=== PATIENT | male | born 1945 | race Two or more races ===

== ENCOUNTER 2020-05-07 14:20 | Emergency (ER) | payer MEDICARE, MEDICAID ==
[~2020-05-07] VITALS: Ht 167.6 cm; Wt 79.4 kg
--- NOTE | 2020-05-07 14:40 | NUR ---
BIB . FELT SHORT OF BREATH TODAY, TESTED (+) TO COVID 10 04/28/2020. VS CHECKED, SEEN BY .
[2020-05-07] MEDS: ACETAMINOPHEN ES 500 MG TABLET PO ONE (15:00)
[2020-05-07 15:26] LABS: BASOPHILS % (AUTO) 0.6 % (0.0-2.0); EOSINOPHILS % (AUTO) 0.1 % (0.0-6.0); HEMATOCRIT 43 % (39-51); LYMPHOCYTES # (AUTO) 1.2 /CMM (0.8-4.8); LYMPHOCYTES % (AUTO) 24.6 % (20.0-44.0); MEAN CORPUSCULAR HGB CONC 33 g/dl (31.0-36.0); MEAN CORPUSCULAR VOLUME 92 fL (80-96); MONOCYTES # (AUTO) 0.7 /CMM (0.1-1.30); MONOCYTES % (AUTO) 14.7 % (2.0-12.0); PLATELET COUNT (AUTO) 98 /CMM (150-450); RED BLOOD CELL COUNT(AUTO) 4.67 MIL/uL (4.5-6.0); WHITE BLOOD COUNT (AUTO) 4.9 K/uL (4.3-11.0)
[2020-05-07] MEDS ORDERED: AZIT250T13 PO (15:26)
[2020-05-07] MEDS ORDERED: ERGO500040 PO (15:31)
[2020-05-07] MEDS ORDERED: ACETAMINOPHEN ES 500 MG TABLET ONE (15:31)
[2020-05-07] MEDS ORDERED: OLME1TAB92 PO (15:31)
[2020-05-07] MEDS ORDERED: OMEP40CA13 PO (15:31)
[2020-05-07] MEDS ORDERED: ROSU10TA2 PO (15:31)
[2020-05-07] MEDS ORDERED: ASPI-1169 PO (15:31)
[2020-05-07] MEDS ORDERED: METF-442 PO (15:31)
[2020-05-07 16:06] LABS: D-DIMER 1.2 mg/L(FEU (0.17-0.50)
[2020-05-07 16:18] LABS: ALANINE AMINOTRANSFERASE 45 U/L (12-78); ALBUMIN 2.4 g/dL (3.4-5.0); ALKALINE PHOSPHATASE 57 U/L (46-116); ASPARTATE AMINOTRANSFERASE 43 U/L (15-37); B-TYPE NATRIURETIC PEPTIDE 1059 PG/ML (0-125); BILIRUBIN,TOTAL 0.4 mg/dL (0.2-1.0); CALCIUM, SERUM 8.3 mg/dL (8.5-10.1); CARBON DIOXIDE 24 mmol/L (21-32); CHLORIDE 103 mmol/L (98-107); CREATININE 1.4 mg/dL (0.6-1.3); GLUCOSE 110 mg/dL (74-106); POTASSIUM 3.8 mmol/L (3.5-5.1); SODIUM SERUM 138 mmol/L (136-145); TOTAL PROTEIN, SERUM 6.3 g/dL (6.4-8.2); UREA NITROGEN, BLOOD 28 mg/dL (7-18)
[2020-05-07 16:58] LABS: C-REACTIVE PROTEIN 8.1 mg/dL (0.0-0.9); CREATINE KINASE, TOTAL 32 U/L (39-308); FERRITIN 857 ng/mL (8-388)
--- NOTE | 2020-05-07 17:18 | NUR ---
urine collected sent to lab
[2020-05-07 17:23] LABS: BAND % (MANUAL) 1 % (0.0-5.0); LYMPHOCYTES % (MANUAL) 21 % (16-48); MONOCYTES % (MANUAL) 17 % (0-11.0); NEUTROPHILS % (MANUAL) 61 (42-76)
--- NOTE | 2020-05-07 17:36 | NUR ---
Patient discharged to home in stable condition. Written and verbal after care instructions given. Patient verbalizes understanding of instruction.IV removed. Catheter intact and site benign. Pressure and 4x4 applied to site. No bleeding noted. Pt ambulatory with a steady gait
[2020-05-07 17:38] VITALS: BP 106/66
[2020-05-07 17:46] LABS: BILIRUBIN,URINE SMALL (NEGATIVE); COLOR,URINE YELLOW (YELLOW); LEUKOCYTE ESTERASE ,URINE Negative (NEGATIVE); NITRITE, URINE Negative (NEGATIVE); PH,URINE 5.5 (5.0-8.0); PROTEIN,URINE 30 mg/dl (NEGATIVE); UGLUCOSE Negative (NEGATIVE); UROBILINOGEN,URINE 0.2 EU/dL (0.2)
[2020-05-07 17:49] LABS: BACTERIA,URINE Rare /HPF (None Seen); RBC,URINE NONE SEEN /HPF (0-2); SQUAMOUS EPITHELIAL CELL,UR Few /HPF (None Seen); WBC,URINE NONE SEEN /HPF (0-3)
== END 2020-05-07 17:38 | disposition home or self-care (01) ==
LOC: ER 14:25
DX: U07.1 COVID-19 (principal); I10 Essential (primary) hypertension; E11.9 Type 2 diabetes mellitus without complications; Z79.82 Long term (current) use of aspirin; Z79.84 Long term (current) use of oral hypoglycemic drugs; Z79.899 Other long term (current) drug therapy
CPT/HCPCS: 36415; 71045-TC; 80053-TC; 81001; 82550-TC; 82728-TC; 83605-TC; 83615-TC; 83880; 84484-TC; 85025-TC; 85378-TC; 85730-TC; 86140-TC; 87040-TC

== ENCOUNTER 2020-05-11 12:50 | Inpatient (IN) | payer MEDICARE, OTHER ==
[~2020-05-11] VITALS: Ht 167.6 cm; Wt 74.8 kg
[~2020-05-11 12:50] MED LIST: ASPI-1169 PO; AZIT250T13 PO; ERGO500040 PO; METF-442 PO; OLME1TAB92 PO; OMEP40CA13 PO; ROSU10TA2 PO
[2020-05-11] MEDS ORDERED: ACETAMINOPHEN ES 500 MG TABLET ONE (13:07)
[2020-05-11] MEDS ORDERED: DEXAMETHASONE SOD PHOSPHATE 10 MG/ML VIAL ONE (13:07)
[2020-05-11] MEDS ORDERED: DEXAMETHASONE SOD PHOSPHATE 10 MG/ML VIAL IV ONE (13:30)
[2020-05-11] MEDS ORDERED: ACETAMINOPHEN ES 500 MG TABLET PO ONE (13:30)
--- NOTE | 2020-05-11 13:30 | NUR ---
Patient came in to the er c/o cough and fever x 12 days. Connected to the monitor and pulse ox. kept comfortable, will continue to monitor accordingly. IV access initiated and blood drawned and sent to lab.
[2020-05-11] MEDS ORDERED: BENZ200C53 PO (13:45)
[2020-05-11 13:53] LABS: ALANINE AMINOTRANSFERASE 25 U/L (12-78); ALBUMIN 2.2 g/dL (3.4-5.0); ALKALINE PHOSPHATASE 57 U/L (46-116); ASPARTATE AMINOTRANSFERASE 23 U/L (15-37); BILIRUBIN,DIRECT 0.1 mg/dL (0.0-0.2); BILIRUBIN,TOTAL 0.5 mg/dL (0.2-1.0); CALCIUM, SERUM 8.7 mg/dL (8.5-10.1); CARBON DIOXIDE 24 mmol/L (21-32); CHLORIDE 104 mmol/L (98-107); CREATININE 1.1 mg/dL (0.6-1.3); GLUCOSE 129 mg/dL (74-106); POTASSIUM 4.1 mmol/L (3.5-5.1); SODIUM SERUM 137 mmol/L (136-145); TOTAL PROTEIN, SERUM 6.8 g/dL (6.4-8.2); UREA NITROGEN, BLOOD 18 mg/dL (7-18)
--- NOTE | 2020-05-11 14:00 | NUR ---
CALLED EPIC TO [employer] CLERK
[2020-05-11 14:05] LABS: BASOPHILS % (AUTO) 0.6 % (0.0-2.0); EOSINOPHILS % (AUTO) 0.9 % (0.0-6.0); HEMATOCRIT 41 % (39-51); HEMOGLOBIN 13.5 g/dL (13.5-17.5); LYMPHOCYTES # (AUTO) 0.9 /CMM (0.8-4.8); LYMPHOCYTES % (AUTO) 17.3 % (20.0-44.0); MEAN CORPUSCULAR HGB CONC 33 g/dl (31.0-36.0); MEAN CORPUSCULAR VOLUME 90 fL (80-96); MONOCYTES # (AUTO) 0.6 /CMM (0.1-1.30); NEUTROPHILS # (AUTO) 3.7 /CMM (1.8-8.9); NEUTROPHILS % (AUTO) 69.2 % (43.0-81.0); PLATELET COUNT (AUTO) 178 /CMM (150-450); RED BLOOD CELL COUNT(AUTO) 4.52 MIL/uL (4.5-6.0); WHITE BLOOD COUNT (AUTO) 5.3 K/uL (4.3-11.0)
[2020-05-11] MEDS ORDERED: ONDANSETRON HCL/PF 4 MG/2 ML VIAL IVP PRN (15:30)
[2020-05-11] MEDS ORDERED: DEXTROSE 50%-WATER 50 ML DISP.SYRIN IV PRN (15:30)
[2020-05-11] MEDS ORDERED: ALBUTEROL SULFATE 8 GM HFA.AER.AD IH PRN (15:30)
[2020-05-11] MEDS ORDERED: ACETAMINOPHEN 325 MG TABLET PO PRN (15:30)
[2020-05-11] MEDS ORDERED: BENZONATATE 100 MG CAPSULE PO PRN (16:00)
[2020-05-11] MEDS ORDERED: CEFTRIAXONE 1GM BAG (ER ONLY) 50 ML IV ONE (16:06)
[2020-05-11] MEDS: CEFTRIAXONE 1 G in IV D5W 50 ML IV SCH (16:20)
[2020-05-11 16:59] LABS: C-REACTIVE PROTEIN 24.3 mg/dL (0.0-0.9)
[2020-05-11] MEDS: BLOOD SUGAR DIAGNOSTIC 1 EACH STRIP IN SCH ×2 (17:26→22:00)
--- NOTE | 2020-05-11 17:26 | NUR ---
blood sugar checked 127 no insulin needed.
--- NOTE | 2020-05-11 19:18 | NUR ---
report given to Vy MUNOZ for lilliana
--- NOTE | 2020-05-11 19:18 | NUR ---
covid swab collected and sent to lab
--- NOTE | 2020-05-11 19:19 | NUR ---
rec'd report from ALEXANDER Martin for lilliana
--- NOTE | 2020-05-11 19:33 | NUR ---
urine sent to lab
[2020-05-11 19:42] LABS: BILIRUBIN,URINE Negative (NEGATIVE); COLOR,URINE YELLOW (YELLOW); LEUKOCYTE ESTERASE ,URINE Negative (NEGATIVE); NITRITE, URINE Negative (NEGATIVE); PROTEIN,URINE 30 mg/dl (NEGATIVE); UGLUCOSE Negative (NEGATIVE); UROBILINOGEN,URINE 0.2 EU/dL (0.2)
[2020-05-11 19:46] LABS: WBC,URINE 0-2 /HPF (0-3)
[2020-05-11 19:47] LABS: BACTERIA,URINE Rare /HPF (None Seen); MUCUS,URINE Rare /LPF (None Seen); SQUAMOUS EPITHELIAL CELL,UR Rare /HPF (None Seen)
--- NOTE | 2020-05-11 20:55 | NUR ---
call from lab rapid covid negative.
[2020-05-11] MEDS: INSULIN REGULAR, HUMAN 100 UNIT/ML 3 ML VIAL SQ PRN (22:30)
[2020-05-12 04:36] LABS: BASOPHILS % (AUTO) 0.3 % (0.0-2.0); HEMATOCRIT 44 % (39-51); HEMOGLOBIN 14.6 g/dL (13.5-17.5); LYMPHOCYTES % (AUTO) 28.7 % (20.0-44.0); MEAN CORPUSCULAR HGB CONC 33 g/dl (31.0-36.0); MEAN CORPUSCULAR VOLUME 90 fL (80-96); MONOCYTES # (AUTO) 0.2 /CMM (0.1-1.30); MONOCYTES % (AUTO) 6.1 % (2.0-12.0); NEUTROPHILS # (AUTO) 2.3 /CMM (1.8-8.9); NEUTROPHILS % (AUTO) 64.9 % (43.0-81.0); PLATELET COUNT (AUTO) 191 /CMM (150-450); RED BLOOD CELL COUNT(AUTO) 4.87 MIL/uL (4.5-6.0); WHITE BLOOD COUNT (AUTO) 3.5 K/uL (4.3-11.0)
[2020-05-12] MEDS ORDERED: AMLODIPINE BESYLATE 5 MG TABLET ONE ×2 (04:43→09:23)
[2020-05-12] MEDS ORDERED: hydrALAZINE HCL 25 MG TABLET ONE (04:51)
[2020-05-12 05:00] LABS: ALANINE AMINOTRANSFERASE 25 U/L (12-78); ALKALINE PHOSPHATASE 55 U/L (46-116); ASPARTATE AMINOTRANSFERASE 19 U/L (15-37); BILIRUBIN,TOTAL 0.4 mg/dL (0.2-1.0); CARBON DIOXIDE 27 mmol/L (21-32); CHLORIDE 105 mmol/L (98-107); CHOLESTEROL 134 mg/dL (<200); GLUCOSE 183 mg/dL (74-106); HDL CHOLESTEROL 35 mg/dL (40-60); LDL 76 mg/dL (0-99); MAGNESIUM 2.3 mg/dL (1.8-2.4); PHOSPHORUS 3.2 mg/dL (2.5-4.9); POTASSIUM 4.5 mmol/L (3.5-5.1); SODIUM SERUM 139 mmol/L (136-145); THYROID STIMULATING HORMONE < 0.007 uIU/mL (0.358-3.74); TOTAL PROTEIN, SERUM 6.9 g/dL (6.4-8.2); TRIGLYCERIDES 85 mg/dL (30-150); UREA NITROGEN, BLOOD 21 mg/dL (7-18)
[2020-05-12] MEDS ORDERED: hydrALAZINE HCL 25 MG TABLET PO PRN (05:00)
[2020-05-12] MEDS ORDERED: AMLODIPINE BESYLATE 5 MG TABLET PO SCH (05:00)
--- NOTE | 2020-05-12 05:06 | NUR ---
non admin Apresoline was pulled from the floor omnicell. Medication unavailable in ED
--- NOTE | 2020-05-12 07:04 | NUR ---
gave report to ALEXANDER Martin for lilliana
[2020-05-12] MEDS: BLOOD SUGAR DIAGNOSTIC 1 EACH STRIP IN SCH ×4 (08:26→21:57)
[2020-05-12] MEDS: INSULIN REGULAR, HUMAN 100 UNIT/ML 3 ML VIAL SQ PRN ×4 (08:28→22:05)
[2020-05-12] MEDS ORDERED: DEXAMETHASONE SOD PHOSPHATE 10 MG/ML VIAL ONE (09:22)
[2020-05-12] MEDS ORDERED: ENOXAPARIN SODIUM 40 MG/0.4 ML DISP.SYRIN SQ ONE (09:22)
[2020-05-12] MEDS ORDERED: METFORMIN XR 500 MG TAB.SR.24H PO ONE (09:23)
[2020-05-12] MEDS ORDERED: PANTOPRAZOLE 40 MG TABLET.DR PO ONE (09:23)
[2020-05-12] MEDS ORDERED: ATORVASTATIN 40 MG TABLET ONE (09:23)
[2020-05-12] MEDS ORDERED: ASPIRIN 81 MG TAB.CHEW ONE (09:23)
[2020-05-12] MEDS: DEXAMETHASONE SOD PHOSPHATE 10 MG/ML VIAL IV SCH (09:35)
[2020-05-12] MEDS: ASPIRIN 81 MG TAB.CHEW PO SCH (09:36)
[2020-05-12] MEDS: LOSARTAN/HCTZ 50-12.5MG/ 1 EA TABLET PO SCH (09:36)
[2020-05-12] MEDS: AMLODIPINE BESYLATE 10 MG TABLET PO SCH (09:36)
[2020-05-12] MEDS: METFORMIN 500 MG TABLET PO SCH (09:36)
[2020-05-12] MEDS: ATORVASTATIN 40 MG TABLET PO SCH (09:36)
[2020-05-12] MEDS: PANTOPRAZOLE 40 MG TABLET.DR PO SCH (09:36)
[2020-05-12] MEDS: ENOXAPARIN SODIUM 40 MG/0.4 ML DISP.SYRIN SQ SCH (09:37)
--- NOTE | 2020-05-12 14:17 | NUR ---
+ PCR PER LAB.
[2020-05-12] MEDS ORDERED: AZITHROMYCIN 250 MG TABLET PO SCH (16:00)
[2020-05-12] MEDS: CEFTRIAXONE 1 G in IV D5W 50 ML IV SCH (16:23)
[2020-05-12] MEDS ORDERED: AZITHROMYCIN 250 MG TABLET ONE (17:05)
--- NOTE | 2020-05-12 19:16 | NUR ---
rec'd report from axvier mcrae for lilliana
--- NOTE | 2020-05-12 22:00 | NUR ---
pt fed and made comfortable.
--- NOTE | 2020-05-13 01:30 | NUR ---
pt resting comfortably. Easily arousable
[2020-05-13 05:16] LABS: CALCIUM, SERUM 9.2 mg/dL (8.5-10.1); CREATININE 1.2 mg/dL (0.6-1.3); POTASSIUM 4.3 mmol/L (3.5-5.1)
--- NOTE | 2020-05-13 07:37 | NUR ---
gave report to ALEXANDER Zeng for lilliana
[2020-05-13] MEDS: BLOOD SUGAR DIAGNOSTIC 1 EACH STRIP IN SCH ×2 (08:15→12:11)
[2020-05-13] MEDS ORDERED: ATORVASTATIN 40 MG TABLET ONE (08:27)
[2020-05-13] MEDS ORDERED: ENOXAPARIN SODIUM 40 MG/0.4 ML DISP.SYRIN SQ ONE (08:27)
[2020-05-13] MEDS ORDERED: DEXAMETHASONE SOD PHOSPHATE 10 MG/ML VIAL ONE (08:27)
[2020-05-13] MEDS ORDERED: METFORMIN XR 500 MG TAB.SR.24H PO ONE (08:28)
[2020-05-13] MEDS ORDERED: ASPIRIN 81 MG TAB.CHEW ONE (08:28)
[2020-05-13] MEDS ORDERED: AMLODIPINE BESYLATE 5 MG TABLET ONE (08:28)
[2020-05-13] MEDS ORDERED: PANTOPRAZOLE 40 MG TABLET.DR PO ONE (08:28)
[2020-05-13 08:41] LABS: BASOPHILS % (AUTO) 0.1 % (0.0-2.0); HEMATOCRIT 45 % (39-51); HEMOGLOBIN 14.5 g/dL (13.5-17.5); LYMPHOCYTES # (AUTO) 1.5 /CMM (0.8-4.8); LYMPHOCYTES % (AUTO) 11.7 % (20.0-44.0); MEAN CORPUSCULAR HGB CONC 33 g/dl (31.0-36.0); MEAN CORPUSCULAR VOLUME 90 fL (80-96); MONOCYTES # (AUTO) 0.6 /CMM (0.1-1.30); MONOCYTES % (AUTO) 4.6 % (2.0-12.0); NEUTROPHILS # (AUTO) 10.7 /CMM (1.8-8.9); NEUTROPHILS % (AUTO) 83.6 % (43.0-81.0); PLATELET COUNT (AUTO) 277 /CMM (150-450); RED BLOOD CELL COUNT(AUTO) 4.94 MIL/uL (4.5-6.0); WHITE BLOOD COUNT (AUTO) 12.8 K/uL (4.3-11.0)
[2020-05-13] MEDS: DEXAMETHASONE SOD PHOSPHATE 10 MG/ML VIAL IV SCH (08:43)
[2020-05-13] MEDS: ASPIRIN 81 MG TAB.CHEW PO SCH (08:43)
[2020-05-13] MEDS: PANTOPRAZOLE 40 MG TABLET.DR PO SCH (08:43)
[2020-05-13] MEDS: METFORMIN 500 MG TABLET PO SCH (08:43)
[2020-05-13] MEDS: ATORVASTATIN 40 MG TABLET PO SCH (08:45)
[2020-05-13] MEDS: ENOXAPARIN SODIUM 40 MG/0.4 ML DISP.SYRIN SQ SCH (08:46)
[2020-05-13] MEDS: LOSARTAN/HCTZ 50-12.5MG/ 1 EA TABLET PO SCH (08:46)
[2020-05-13] MEDS: AMLODIPINE BESYLATE 10 MG TABLET PO SCH (08:46)
[2020-05-13] MEDS: INSULIN REGULAR, HUMAN 100 UNIT/ML 3 ML VIAL SQ PRN ×2 (08:47→12:12)
--- NOTE | 2020-05-13 10:16 | NUR ---
PATIENT ON ROOM AIR WITH SPO2 OF 95-99%. BREATHING EVEN AND UNLABORED, NO SOB NOTED. NEEDS ATTENDED.
[2020-05-13] MEDS ORDERED: METH4TAB3 PO (10:25)
[2020-05-13] MEDS ORDERED: AZIT1PAC9 PO (10:25)
--- NOTE | 2020-05-13 16:26 | NUR ---
PATIENT A/OX4, BREATHING EVEN AND UNLABORED, NO SOB NOTED. ON ROOM AIR WITH SPO2 OF 96-98%. NO RESPIRATORY DISTRESS NOTED. NEEDS ATTENDED. IV removed. Catheter intact and site benign. Pressure and 4x4 applied to site. No bleeding noted. Patient discharged to home in stable condition. Written and verbal after care instructions given. Patient verbalizes understanding of instruction. present and gave discharge instructions.
[2020-05-13 16:28] VITALS: BP 121/70
[2020-05-16] MEDS ORDERED: ERGOCALCIFEROL (VITAMIN D 2) 50,000 UNIT CAPSULE PO SCH (16:00)
== END 2020-05-13 16:29 | disposition home or self-care (01) | DRG 177 ==
LOC: ER 12:54 → TRANSITION 15:41
PROVIDERS: ADMIT Registered Nurse; ATTEND Internal Medicine
DX: U07.1 COVID-19 (principal); J96.01 Acute respiratory failure with hypoxia; J12.82 Pneumonia due to coronavirus disease 2019; J15.9 Unspecified bacterial pneumonia; I10 Essential (primary) hypertension; E11.9 Type 2 diabetes mellitus without complications; Z85.46 Personal history of malignant neoplasm of prostate; Z79.84 Long term (current) use of oral hypoglycemic drugs
CPT/HCPCS: 36415; 71045-TC; 80048-TC; 80053-TC; 80061-TC; 80076-TC; 81001; 82550-TC; 82728-TC; 82962-TC; 83605-TC; 83615-TC; 83735-TC; 84100-TC; 84443-TC; 84484-TC; 85025-TC; 85378-TC; 85730-TC; 86140-TC; 87040-TC; 87081-TC; 87086-TC; G0378; J0696; J1100; J1650; J7060; U0003